=== PATIENT | female | born 1990 | race African-American/Black ===

== ENCOUNTER 2019-07-26 05:58 | Emergency (ER) | payer OTHER ==
[~2019-07-26] VITALS: Ht 154.9 cm; Wt 72.6 kg
[~2019-07-26 05:58] MED LIST: NAPROSYN500 MG PO
[2019-07-26] MEDS ORDERED: IBUPROFEN 400400 M2 PO (07:40)
[2019-07-26 07:53] VITALS: BP 132/87
== END 2019-07-26 08:02 | disposition home or self-care (01) ==
LOC: ER 05:58
DX: S83.012A Lateral subluxation of left patella, initial encounter (principal); X50.1XXA Overexertion from prolonged static or awkward postures, initial encounter; Y93.B9 Activity, other involving muscle strengthening exercises; Y92.098 Other place in other non-institutional residence as the place of occurrence of the external cause; Y99.8 Other external cause status